=== PATIENT | female | born 1980 | race Caucasian/White ===

== ENCOUNTER 2017-08-29 09:38 | Day surgery (SDC) | payer SELFPAY ==
[2017-08-29] MEDS ORDERED: LIDOCAINE HCL 1%, 10 MG/ML (20ML VIAL) ONE (09:53)
[2017-08-29] MEDS ORDERED: BACITRACIN 15 GM TUBE TOPICAL OINTMENT ONE (09:53)
[2017-08-29] MEDS ORDERED: EPINEPHrine/PF 1 MG/1 ML (1:1,000) AMPULE ONE (09:53)
[2017-08-29 09:55] VITALS: BMI 29.2
[2017-08-29] MEDS ORDERED: MIDAZOLAM HCL 2 MG/2 ML SINGLE DOSE VIAL ONE (10:28)
[2017-08-29] MEDS ORDERED: PROPOFOL 20 ML ONE (10:31)
[2017-08-29] MEDS ORDERED: oxyCODONE HCL 5 MG TABLET PO PRN ×3 (10:41→12:51)
[2017-08-29] MEDS ORDERED: ONDANSETRON 4 MG/2 ML VIAL IVPUSH PRN (10:41)
[2017-08-29] MEDS ORDERED: ACETAMINOPHEN 325 MG TABLET (FP) PO PRN (10:41)
[2017-08-29] MEDS ORDERED: LACTATED RINGERS SOLUTION 1,000 ML IV SCH ×2 (10:45→13:00)
[2017-08-29] MEDS ORDERED: LIDOCAINE HCL/PF 2% SDV 5ML VIAL ONE (10:50)
[2017-08-29] MEDS ORDERED: DEXAMETHASONE SOD PHOSPHATE 4 MG/1 ML VIAL ONE ×2 (11:01→12:29)
[2017-08-29] MEDS ORDERED: ceFAZolin SODIUM 1 GM VIAL ONE (11:02)
[2017-08-29] MEDS ORDERED: HYDROmorphone HCL/PF 1 MG/ML VIAL (FOR PYXIS CHARGING ONLY) ONE (11:54)
[2017-08-29] MEDS ORDERED: ONDANSETRON 4 MG/2 ML VIAL ONE ×2 (12:29→13:37)
[2017-08-29] MEDS ORDERED: ONDANSETRON 4 MG/2 ML VIAL IVPB PRN (12:51)
--- NOTE | 2017-08-29 12:56 | OP ---
Operative Note - Note: Operative Date: 08/29/17 Pre-Operative Diagnosis: abdominal and flank lipodystrophy Operation: liposuction to abdomen and flanks Post-Operative Diagnosis: Same as Pre-op Surgeon: Brayden Morley Anesthesia: General Operative Report Dictated: Yes
[2017-08-29 14:28] VITALS: TEMP 98.1
[2017-08-29] MEDS ORDERED: oxyCODONE HCL 5 MG TABLET ONE ×2 (16:13→16:53)
[2017-08-29 18:24] VITALS: BP 122/78; PULSE 76
--- NOTE | 2017-08-29 21:29 | OP ---
DATE OF OPERATION: 08/29/2017 TITLE OF PROCEDURE: Liposuction to abdomen and bilateral flanks. PREOPERATIVE DIAGNOSIS: Lipodystrophy to the abdomen and bilateral flanks. POSTOPERATIVE DIAGNOSIS: Lipodystrophy to the abdomen and bilateral flanks. Patient is seen in the holding area, marked, awake and aware of all incisions and resulting scars. Patient is counseled on need for multiple stab wound incisions and is accepting of this. She is also accepting of the risks, benefits, and alternatives to the procedure as well as its limitations. The patient is given sequential compression stockings and SEBAS hose in the holding area. A gram of Ancef is given preoperatively. She is brought to the operating room and placed in a supine position. Position is carefully checked by surgical and anesthesia teams. She is draped and prepped in standard surgical fashion after anesthesia is given. A timeout is called. Patient, procedure, sites, and sides are verified. At this point, small stab wound incisions are made for infiltration of the wetting solution. The wetting solution is 2 L of lactated Ringer's with 20 mL of 1% lidocaine plain in 1 ampule of 1:1000 epinephrine. A third liter is infiltrated which has only 1 ampule of 1:1000 epinephrine with no lidocaine. All 3 L are lactated Ringer's. A full 25 minutes is awaited for the anesthetic and hemostatic effect of the wetting solution. After which, the SAFE technique of liposuction is performed with pre and post-tunneling. Pre-tunneling is performed with a 4-mm basket-tip cannula for completion of this. Liposuction is then performed with the [employer] power-assisted system using 4 and 3-mm cannulas. The 4-mm cannulas are used in the deep plane, while the 3-mm cannulas are used in the more superficial plane. The liposuction aspirates are as follows: From the lower abdomen 1450 mL, from the left flank 700 mL, from the right flank 850 mL, from the right upper abdomen 100 mL, and the left upper abdomen 125 mL and then an additional miscellaneous 50 mL. Total liposuction aspirate for this case is 3.2 L. The endpoint is smooth even contour by pinch test and the appearance of blood within the liposuction aspirate. At the completion of this, the post-tunneling with a 4-mm basket-tip cannula is then performed to smooth the contour. All contours appear smooth without any deformities. The incisions are closed with a series of interrupted 5-0 nylon suture. The umbilical portal is left open in order to allow for drainage. Eye patches and Tegaderm are used for dressings. An abdominal binder is applied. The patient is awoken from anesthesia, having tolerated the procedure well, transferred to Recovery without complication. Dae HAMILTON/[id number]
== END 2017-08-29 17:15 | disposition home or self-care (01) ==
LOC: FASU 09:38
PROVIDERS: ATTEND Plastic Surgery
PROC: 0J083ZZ Alteration of Abdomen Subcutaneous Tissue and Fascia, Percutaneous Approach (ICD-10-PCS; principal; 2017-08-29 11:06)
DX: Z41.1 Encounter for cosmetic surgery (principal); E88.1 Lipodystrophy, not elsewhere classified
CPT/HCPCS: 84703; 94760